=== PATIENT | female | born 1995 | race American Indian/Alaskan Native ===

== ENCOUNTER 2023-02-03 23:29 | Emergency (ER) | payer OTHER ==
[~2023-02-03] VITALS: Ht 165.1 cm; Wt 82.1 kg
[2023-02-04 00:13] VITALS: BP 138/82
--- NOTE | 2023-02-04 03:05 | NUR ---
PER LAB, DID NOT SEE STREP ORDER, REC'D SPECIMEN NOW
--- NOTE | 2023-02-04 03:41 | NUR ---
Patient discharged to home in stable condition. Written and verbal after care instructions given. Patient verbalizes understanding of instruction. PT ambulatory with a steady gait
== END 2023-02-04 03:41 | disposition home or self-care (01) ==
LOC: ER 23:31
DX: J06.9 Acute upper respiratory infection, unspecified (principal); R07.0 Pain in throat; R09.82 Postnasal drip; H92.03 Otalgia, bilateral; F32.A Depression, unspecified; Z60.2 Problems related to living alone
CPT/HCPCS: 86403-TC